=== PATIENT | female | born 1950 | race Caucasian/White ===

== ENCOUNTER 2024-08-22 15:51 | Emergency (ER) | payer SELFPAY ==
[2024-08-22 15:58] VITALS: BP 154/84
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
[2024-08-22 19:45] VITALS: BP 129/71
== END 2024-08-22 19:45 | disposition home or self-care (01) ==
LOC: EMR 15:51
PROVIDERS: EMERGENCY PHYSICIAN Emergency Medicine; FAMILY PHYSICIAN Internal Medicine
DX: S43.402A Unspecified sprain of left shoulder joint, initial encounter (principal); S90.31XA Contusion of right foot, initial encounter; M54.2 Cervicalgia; V49.40XA Driver injured in collision with unspecified motor vehicles in traffic accident, initial encounter; E11.9 Type 2 diabetes mellitus without complications; E78.5 Hyperlipidemia, unspecified
CPT/HCPCS: 99284; 70450; 71101; 72125; 73030; 73630

== ENCOUNTER 2024-08-28 22:00 | Emergency (ER) | payer OTHER, SELFPAY ==
[2024-08-28 22:01] VITALS: BP 166/97
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
[2024-08-29] VITALS: BP 123/72
[2024-08-29 00:03] VITALS: BMI 22.5
[2024-08-29 00:35] VITALS: BP 123/70
== END 2024-08-29 01:00 | disposition home or self-care (01) ==
LOC: EMR 22:00
PROVIDERS: EMERGENCY PHYSICIAN Emergency Medicine; FAMILY PHYSICIAN Internal Medicine
DX: R04.0 Epistaxis (principal)
CPT/HCPCS: 30901; 99282